=== PATIENT | male | born 1995 | race Caucasian/White ===

== ENCOUNTER 2018-08-09 18:56 | Emergency (ER) | payer BC, MEDICAID, OTHER ==
[2018-08-09] MEDS ORDERED: Diphtheria/Tetanus Toxoids,Adult (Td) 0.5 ML Syringe IM ONE (19:43)
[2018-08-09] MEDS ORDERED: Bacitracin/Neomycin/Polymyxin B Oint 0.9 GM U/D Packet TOP ONE (20:10)
--- NOTE | 2018-08-09 20:13 | EDM.PDOC ---
ED HPI GENERAL MEDICAL PROBLEM - General Chief Complaint: Laceration Stated Complaint: laceration Time Seen by Provider: 08/09/18 19:18 Source of Information: Reports: Patient History Limitations: Reports: No Limitations - History of Present Illness INITIAL COMMENTS - FREE TEXT/NARRATIVE: Patient cut self on right middle finger while working on truck tonight. No other injury. Function intact. No numbness. Right Finger-Middle Pain Score (Numeric/FACES): 2 - Related Data Allergies Allergy/AdvReac Type Severity Reaction Status Date / Time No Known Allergies Allergy Verified 08/09/18 18:58 Home Meds: Home Meds . [No Known Home Meds] 08/09/18 [History] Past Medical History - Past Health History Medical/Surgical History: Denies Medical/Surgical History Social & Family History - Tobacco Use Smoking Status *Q: Never Smoker - Caffeine Use Caffeine Use: Reports: Coffee - Alcohol Use Days Per Week of Alcohol Use: 1 Number of Drinks Per Day: 2 Total Drinks Per Week: 2 - Recreational Drug Use Recreational Drug Use: No ED ROS GENERAL - Review of Systems Review Of Systems: ROS reveals no pertinent complaints other than HPI. ED EXAM, SKIN/RASH Exam: See Below Exam Limited By: No Limitations General Appearance: Alert, WD/WN, No Apparent Distress Eye Exam: Bilateral Eye: EOMI Throat/Mouth: Normal Voice, No Airway Compromise Head: Atraumatic, Normocephalic Neck: Supple Respiratory/Chest: No Respiratory Distress Extremities: Normal Range of Motion (Tendon function appears to be intact), Normal Capillary Refill, Other (laceration dorsal right middle finger proximally ) Neurological: Alert, Oriented, Normal Cognition, Normal Gait, No Motor/Sensory Deficits Psychiatric: Normal Affect, Normal Mood Skin: Warm, Dry, Normal Color, Wound/Incision ED SKIN PROCEDURES - Laceration/Wound Repair Right Dorsal Digit - 3rd (Middle) Lac/Wound length In cm: 2.5 Appearance: Linear, Clean Distal NVT: Neuro & Vascular Intact, No Tendon Injury Anesthetic Type: Local Local Anesthesia - Lidocaine (Xylocaine): 1% Plain Exploration/Debridement/Repair: Wound Explored, In a Bloodless Field, Explored to Base, No Foreign Material Found Closed with: Sutures Suture Size: 4-0 # of Sutures: 3 Suture Type: Nylon, Interrupted Sterile Dressing Applied: Nurse Tetanus Status Addressed: Yes Complications: No Course - Vital Signs Last Recorded V/S: Last Vital Signs Temp 37.2 C 08/09/18 19:11 Pulse 83 08/09/18 19:11 Resp 16 08/09/18 19:11 BP 137/73 08/09/18 19:11 Pulse Ox 100 08/09/18 19:11 - Orders/Labs/Meds Orders: Active Orders 24 hr Category Date Time Status Vaccines to be Administered [RC] PER UNIT ROUTINE Care 08/09/18 19:43 Ordered Meds: Medications Discontinued Medications Generic Name Dose Route Start Last Admin Trade Name Dav PRN Reason Stop Dose Admin Lidocaine HCl 5 ml 08/09/18 19:44 08/09/18 19:50 Xylocaine-Mpf 1% INJECT 08/09/18 19:45 5 ml ONETIME ONE Administration Neomycin/Polymyxin/Bacitracin 1 each 08/09/18 20:10 Triple Antibiotic Oint TOP 08/09/18 20:11 ONETIME ONE Tetanus/Diphtheria Toxoids 0.5 ml 08/09/18 19:43 08/09/18 19:49 Tenivac IM 08/09/18 19:44 0.5 ml .ONCE ONE Administration - Re-Assessments/Exams Free Text/Narrative Re-Assessment/Exam: 08/09/18 20:19 Laceration repaired. Wound care reviewed. Tetanus updated. Departure - Departure Time of Disposition: 20:11 Disposition: Home, Self-Care 01 Condition: Good Clinical Impression: Laceration of right index finger Qualifiers: Encounter type: initial encounter Damage to nail status: without damage Foreign body presence: without foreign body Qualified Code(s): S61.210A - Laceration without foreign body of right index finger without damage to nail, initial encounter - Discharge Information *PRESCRIPTION DRUG MONITORING PROGRAM REVIEWED*: Not Applicable *COPY OF PRESCRIPTION DRUG MONITORING REPORT IN PATIENT [place]: Not Applicable Instructions: Sutured Wound Care, [id number] Forms: ED Department Discharge Additional Instructions: Keep wound clean. Follow up as needed if any problems or signs of infection develop. Sutures out in 8-10 days as discussed. - My Orders Last 24 Hours: My Active Orders 08/09/18 19:43 Vaccines to be Administered [RC] PER UNIT ROUTINE - Assessment/Plan Last 24 Hours: My Active Orders 08/09/18 19:43 Vaccines to be Administered [RC] PER UNIT ROUTINE
== END 2018-08-09 20:25 | disposition home or self-care (01) ==
LOC: LL.ED 18:56
DX: S61.210A Laceration without foreign body of right index finger without damage to nail, initial encounter (principal); Z23 Encounter for immunization; W45.8XXA Other foreign body or object entering through skin, initial encounter
CPT/HCPCS: 12001; 90471; 90714; 99283; J2001